=== PATIENT | male | born 1970 | race Caucasian/White ===

== ENCOUNTER 2016-07-19 16:34 | Emergency (ER) | payer BC ==
[~2016-07-19] VITALS: Ht 182.9 cm; Wt 111.4 kg
[2016-07-19 16:40] VITALS: BP 161/85; TEMP 98.6
[2016-07-19] MEDS ORDERED: PRAVACHOL 40MG40 MG PO (16:44)
[2016-07-19] MEDS ORDERED: TOPROL XL 50MG50 MG (16:44)
[2016-07-19] MEDS ORDERED: ASPIRIN 81M81 MG/TA2 PO (16:44)
[2016-07-19] MEDS ORDERED: XANAX 0.5MG0.5 MG PO (16:45)
[2016-07-19 17:31] LABS: BASO # 0.1 (0.0-0.2); BASO % 0.5 % (0.0-2.0); EOS # 0.2 (0.0-0.7); GRAN # 6.2 (1.4-6.5); HEMOGLOBIN 15.3 g/dl (13.5-18.0); LYMPH # 2.9 (1.2-3.4); LYMPH % 28.7 % (20.0-51.0); MEAN CELL VOLUME 85 fl (80.0-100.0); MEAN CORPUSCULAR HEMOGLOBIN 31 pg (27.0-31.0); MEAN CORPUSCULAR HGB CONC 36 g/dl (33.0-37.0); MEAN PLATELET VOLUME 11.2 fl (7.4-10.4); MONO # 0.8 (0.1-0.6); MONO % 7.5 % (1.7-9.3); PLATELET COUNT 201 K/mm3 (130-400); RED BLOOD COUNT 4.93 M/mm3 (4.20-5.60); REDCELL DISTRIBUTION WIDTH-CV 11.9 % (11.5-14.5); WHITE BLOOD COUNT 10.2 K/mm3 (4.8-10.8)
[2016-07-19 17:32] LABS: ADJUSTED CALCIUM 9.9 mg/dL (8.4-10.2); ALANINE AMINOTRANSFERASE 48 U/L (21-72); ALBUMIN 4.7 gm/dL (3.5-5.0); ALKALINE PHOSPHATASE 79 U/L (50-136); ANION GAP 14 mmol/L (7-16); BLOOD UREA NITROGEN 17 mg/dL (9-20); CALCIUM 10.5 mg/dL (8.4-10.2); CARBON DIOXIDE 26 mmol/L (22-30); CHLORIDE 99 mmol/L (98-107); CREATININE, serum 1.06 mg/dL (0.66-1.25); GLUCOSE 97 mg/dL (74-106); SODIUM 140 mmol/L (137-145); TOTAL PROTEIN 8.1 gm/dL (6.4-8.2)
[2016-07-19 17:34] LABS: C-REACTIVE PROTEIN < 0.5 mg/dL (0.0-0.9)
[2016-07-19 17:41] LABS: B-TYPE NATRIURETIC PEPTIDE 25 pg/mL (0-125)
[2016-07-19 17:42] LABS: TROPONIN-I < 0.012 ng/mL (0.000-0.034)
[2016-07-19 18:10] VITALS: PULSE 73
== END 2016-07-19 18:12 | disposition home or self-care (01) ==
LOC: COL.ER 16:34
PROVIDERS: Emergency Medicine
DX: R06.00 Dyspnea, unspecified (principal); I10 Essential (primary) hypertension; F17.210 Nicotine dependence, cigarettes, uncomplicated

== ENCOUNTER → 2019-04-04 | Outpatient (CLI) | payer BC ==
[~2019-04-04] MED LIST: ASPIRIN 81M81 MG/TA2 PO; PRAVACHOL 40MG40 MG PO; TOPROL XL 50MG50 MG; XANAX 0.5MG0.5 MG PO
== END ==
LOC: COL.RAD 10:02
DX: K76.0 Fatty (change of) liver, not elsewhere classified (principal)